=== PATIENT | male | born 1975 | race Caucasian/White ===

== ENCOUNTER 2017-07-06 13:22 | Emergency (ER) | payer MEDICAID ==
[~2017-07-06] VITALS: Ht 170.2 cm; Wt 72.6 kg
[2017-07-06 14:09] LABS: BASOPHIL % 0.4 % (0-2); PLATELET COUNT 236 x10^3mcL (130-400); RED CELL DISTRIBUTION WIDTH 13.5 % (11.5-14.5)
[2017-07-06 14:17] LABS: CALCIUM 7.9 mg/dL (8.5-10.1); CARBON DIOXIDE 27.4 mmol/L (21-32); CHLORIDE SERUM 107 mmol/L (98-107); CREATININE SERUM 0.8 mg/dL (0.7-1.3); GFR1 > 60 mL/min; GLUCOSE SERUM 84 mg/dL (74-106); POTASSIUM SERUM 3.4 mmol/L (3.5-5.1); SODIUM SERUM 140 mmol/L (136-145)
[2017-07-06 14:22] LABS: ALKALINE PHOSPHATASE 64 U/L (46-116); ALT/SGPT 14 U/L (16-63); AST/SGOT 15 U/L (15-37); BILIRUBIN TOTAL 0.54 mg/dL (0.20-1.00); TOTAL PROTEIN, SERUM 6.3 g/dL (6.4-8.2)
[2017-07-06 14:25] LABS: ALBUMIN 3.2 g/dL (3.4-5.0)
[2017-07-06 17:30] VITALS: BP 121/58
== END 2017-07-06 17:31 | disposition home or self-care (01) ==
LOC: ED 13:22
PROVIDERS: Emergency Medicine
DX: R07.9 Chest pain, unspecified (principal); R05 Cough; F17.200 Nicotine dependence, unspecified, uncomplicated; F12.10 Cannabis abuse, uncomplicated
CPT/HCPCS: 83880; J3490; Q0092